=== PATIENT | female | born 1995 | race Caucasian/White ===

== ENCOUNTER 2020-12-03 18:25 | Emergency (ER) | payer OTHER ==
[~2020-12-03] VITALS: Ht 162.6 cm; Wt 129.7 kg
[2020-12-03 18:43] VITALS: Ht 162.6 cm; Wt 129.7 kg
[2020-12-03 19:20] LABS: BASOPHIL % 0.7 % (0.2-1.3); PLATELET COUNT 311 x10^3mcL (179-408); RED CELL DISTRIBUTION WIDTH 14.5 % (12.3-17.7)
[2020-12-03 19:43] LABS: CARBON DIOXIDE 24.5 mmol/L (21-32); CHLORIDE SERUM 99 mmol/L (98-107); CREATININE SERUM 0.7 mg/dL (0.6-1.0); GFR1 > 60 mL/min; GLUCOSE SERUM 132 mg/dL (74-106); POTASSIUM SERUM 3.2 mmol/L (3.5-5.1); SODIUM SERUM 135 mmol/L (136-145)
[2020-12-03 19:48] LABS: ALBUMIN 3.7 g/dL (3.4-5.0); ALKALINE PHOSPHATASE 79 U/L (46-116); ALT/SGPT 194 U/L (14-59); AST/SGOT 166 U/L (15-37); BILIRUBIN TOTAL 1.06 mg/dL (0.20-1.00); LIPASE 94 IU/L (73-393); TOTAL PROTEIN, SERUM 8.3 g/dL (6.4-8.2)
[2020-12-03 20:57] VITALS: BP 165/99
== END 2020-12-03 20:57 | disposition home or self-care (01) ==
LOC: ED 18:25
DX: K80.20 Calculus of gallbladder without cholecystitis without obstruction (principal)